=== PATIENT | female | born 1990 | race Caucasian/White ===

== ENCOUNTER 2017-02-03 15:46 | Emergency (ER) | payer OTHER ==
[~2017-02-03] VITALS: Ht 170.2 cm; Wt 97.4 kg
[~2017-02-03 15:46] MED LIST: ENDOCET 5-3251 EACH PO; EXPECTA PRENAT1 EACH PO; IBUPROFEN800 MG PO; IRON325 M1 PO; LABETALOL HCL100 MG PO
[2017-02-03] MEDS ORDERED: LABETALOL HCL200 MG PO (15:57)
[2017-02-03 17:51] VITALS: BP 147/91
== END 2017-02-03 17:51 | disposition home or self-care (01) ==
LOC: EME 15:46
DX: S61.217A Laceration without foreign body of left little finger without damage to nail, initial encounter (principal); W26.8XXA Contact with other sharp object(s), not elsewhere classified, initial encounter; Z23 Encounter for immunization
CPT/HCPCS: 99281; 99284; S0020

== ENCOUNTER → 2017-03-02 | Outpatient (CLI) | payer OTHER ==
[~2017-03-02] MED LIST changes: +COLACE100 MG PO; +IRON325 MG PO; +LABETALOL HCL200 MG PO; +LO-DOSE ASPIRIN81 M2 PO; +NORMODYNE,TRAN200 MG PO; +PRENATAL TABLE1 EAC3 PO; +TYLENOL EXTRA500 MG PO
== END | disposition home or self-care (01) ==
LOC: CDC 11:40
DX: Z01.810 Encounter for preprocedural cardiovascular examination (principal)
CPT/HCPCS: 93000

== ENCOUNTER 2017-03-04 06:29 | Inpatient (IN) | payer OTHER ==
[~2017-03-04] VITALS: Ht 170.2 cm; Wt 94.5 kg
[~2017-03-04 06:29] MED LIST changes: -IRON325 MG PO
[2017-03-04] MEDS ORDERED: IBUPROFEN800 MG PO (09:49)
[2017-03-04] MEDS ORDERED: ENDOCET 5-3251 EACH PO (09:49)
[2017-03-04 11:48] LABS: EOSINOPHIL (%) 0.3 % (0-5); HEMATOCRIT 27.9 % (36.0-46.0); IMMATURE GRANULOCYTE (%) 0.8 % (0.0-0.7); IMMATURE GRANULOCYTE COUNT 0.1 K/uL; INSTRUMENT ABS NEUTROPHIL CT 7.4 K/uL; LYMPHOCYTE COUNT 0.9 K/uL (1.0-2.8); MCH 25.8 PG (29.0-34.0); MCHC 31.9 G/DL (30.0-36.0); MCV 80.9 FL (83-99); MEAN PLAT.VOLUME 12.8 uM^3 (9.5-12.4); MONOCYTE (%) 2.6 % (3-12); MONOCYTE COUNT 0.2 K/uL (0-0.8); NEUTROPHIL (%) 85.8 % (45-76); NEUTROPHIL COUNT 7.4 K/uL (1.8-6.4); PLATELET COUNT 191 K/uL (156-360); RBC DIS.WIDTH-CV 13.2 % (11.8-14.6); RBC DIS.WIDTH-SD 38.5 % (39-53); RED BLOOD COUNT 3.45 M/uL (3.80-5.20); WHITE BLOOD COUNT 8.6 K/uL (4.1-10.2)
[2017-03-04 11:57] VITALS: BP 142/92
[2017-03-04 12:57] VITALS: BP 131/84
[2017-03-04 15:10] VITALS: BP 142/82
[2017-03-04 17:12] VITALS: BP 128/86
[2017-03-04 19:15] VITALS: BP 130/83
[2017-03-04 21:24] VITALS: BP 130/75
[2017-03-05 02:00] VITALS: BP 136/79
[2017-03-05 06:53] LABS: EOSINOPHIL COUNT 0.1 K/uL (0-0.3); HEMATOCRIT 22.7 % (36.0-46.0); IMMATURE GRANULOCYTE (%) 0.4 % (0.0-0.7); INSTRUMENT ABS NEUTROPHIL CT 6.9 K/uL; LYMPHOCYTE COUNT 1.3 K/uL (1.0-2.8); MCH 25.8 PG (29.0-34.0); MCHC 31.7 G/DL (30.0-36.0); MCV 81.4 FL (83-99); MEAN PLAT.VOLUME 12.8 uM^3 (9.5-12.4); MONOCYTE (%) 8.9 % (3-12); MONOCYTE COUNT 0.8 K/uL (0-0.8); NEUTROPHIL (%) 75.7 % (45-76); NEUTROPHIL COUNT 6.9 K/uL (1.8-6.4); PLATELET COUNT 164 K/uL (156-360); RBC DIS.WIDTH-CV 13.3 % (11.8-14.6); RBC DIS.WIDTH-SD 39.4 % (39-53); RED BLOOD COUNT 2.79 M/uL (3.80-5.20); WHITE BLOOD COUNT 9.1 K/uL (4.1-10.2)
[2017-03-05] MEDS ORDERED: IRON325 MG PO (09:05)
[2017-03-05 19:25] VITALS: BP 173/109
[2017-03-05 20:25] VITALS: BP 171/101
[2017-03-05 21:20] VITALS: BP 168/100
[2017-03-05 21:54] LABS: MCH 25.4 PG (29.0-34.0); MCHC 31.7 G/DL (30.0-36.0); MCV 80.3 FL (83-99); MEAN PLAT.VOLUME 12.2 uM^3 (9.5-12.4); PLATELET COUNT 178 K/uL (156-360); RBC DIS.WIDTH-CV 13.3 % (11.8-14.6); RBC DIS.WIDTH-SD 38.6 % (39-53); RED BLOOD COUNT 2.99 M/uL (3.80-5.20)
[2017-03-05 22:04] LABS: ANION GAP 7 MEQ/L (2-14); CHLORIDE 104 MEQ/L (99-109); POTASSIUM 3.6 MEQ/L (3.7-5.4); SAMPLE HEMOLYSIS CHECK 0; SAMPLE ICTERIC CHECK 0; SAMPLE LIPEMIA CHECK 0; SODIUM 135 MEQ/L (136-147); TOTAL BILIRUBIN 0.3 MG/DL (0.0-1.0)
[2017-03-05 22:10] LABS: ALKALINE PHOSPHATASE 113 IU/L (3-129); GFR ESTIMATE (CALCULATED) > 59 mL/min/; GLUCOSE 92 mg/dL (70-99); UREA NITROGEN (BUN) 9 mg/dL (9-23)
[2017-03-05 23:05] VITALS: BP 135/77
[2017-03-06 19:30] VITALS: BP 141/93
[2017-03-06 23:17] VITALS: BP 140/87
[2017-03-07] VITALS (8 sets, daily range): BP systolic 129–167; BP diastolic 74–102
[2017-03-07] MEDS ORDERED: LABETALOL HCL200 MG PO (10:08)
[2017-03-08 02:30] VITALS: BP 150/90
[2017-03-08 07:18] VITALS: BP 144/91
[2017-03-08 12:30] VITALS: BP 140/92
== END 2017-03-08 14:40 | disposition home or self-care (01) | DRG 765 ==
LOC: 2SOUTH → 2WEST 06:29 → 2SOUTH 08:25 → 2WEST 03-08 14:40
PROVIDERS: Obstetrics & Gynecology
PROC: 10D00Z1 Extraction of Products of Conception, Low, Open Approach (ICD-10-PCS; principal; 2017-03-04)
DX: O34.211 Maternal care for low transverse scar from previous cesarean delivery (principal); O16.4 Unspecified maternal hypertension, complicating childbirth; Z3A.39 39 weeks gestation of pregnancy; D62 Acute posthemorrhagic anemia; O99.03 Anemia complicating the puerperium
CPT/HCPCS: 36415; 80053; 82784 90; 85025; 85027; 86355 90; 86359 90; 86850; 86900; 86901; J0360; J0690; J1100; J1200; J2270; J2274; J2405; J7120